=== PATIENT | male | born 1960 | race Caucasian/White ===

== ENCOUNTER 2018-09-26 22:18 | Inpatient (IN) ==
--- NOTE | 2018-09-26 23:26 | PROVIDER DOCUMENTATION ---
This chart was entered by Anabelle Monique Scribe, acting as scribe for Adam Castillo MD. HPI-General Adult - General Chief Complaint: Altered Mental Status Stated Complaint: AMS Time Seen by Provider: 09/26/18 22:36 Source: EMS Allergies/Adverse Reactions: Patient Allergies Allergy/AdvReac Type Severity Reaction Status Date / Time No Known Allergies Allergy Verified 01/02/17 07:33 Home Medications: Home Medication List Medication Instructions Recorded Confirmed Last Taken Type Hydrocodone/APAP 10 mg/325 mg 1 each PO Q6H PRN PRN #20 tablet 05/02/13 01/02/17 02/23/16 06:00 Rx [[place]-10] RAMIpril [Altace] 5 mg PO DAILY 02/22/16 01/02/17 02/23/16 06:00 History Escitalopram [Lexapro] 10 mg PO DAILY 01/02/17 01/02/17 Unknown History Topiramate 50 mg PO BID PRN PRN 01/02/17 01/02/17 Unknown History - History of Present Illness -Gen Adult Nature of Presenting Problems: Pt is 58/m presenting to ED via EMS, w/ altered mental status. Pt arrives to ED very agitated, disoriented and kicking his legs. He has fever of 102. Pt was dx w/ bronchitis earlier today at PCP. He is on steroid as well as antibiotics. Pt has no hx of AMS. Pt does have RX for [place], but has not been taking then according to at bedside. Location of Pain/Injury: reports: generalized Pain Radiation: reports: no radiation Quality of Pain: reports: none Severity: reports: moderate Onset/Duration: reports: just prior to arrival Timing: reports: still present Context/Activities at Onset: reports: none Modifying Factors: improves with: nothing Associated Symptoms: reports: denies symptoms Similar Symptoms Previously?: No Recently seen or treated by another doctor?: No Review of Systems - Adult - REVIEW OF SYSTEMS - ADULT Constitutional: reports: fever Eyes: reports: no symptoms reported Ears, Nose, Mouth & Throat: reports: no symptoms reported Cardiovascular: reports: no symptoms reported Respiratory: reports: shortness of breath Gastrointestinal: denies: nausea, vomiting Genitourinary: reports: no symptoms reported Musculoskeletal: reports: no symptoms reported Integumentary: reports: no symptoms reported Neurological: reports: no symptoms reported. denies: dizziness/vertigo, headache/migraines Psychiatric: reports: other (agitation) Endocrine: reports: no symptoms reported Hematologic/Lymphatic: reports: no symptoms reported Allergic/Immunologic: reports: no symptoms reported All Other Systems: Reviewed and Negative Past History - Adult - PAST MEDICAL HISTORY-ADULT Review of Records: reports: Old Records Reviewed, Nursing Assessment Review, Medications Reviewed, Social history reviewed & non-contributory. Cardiovascular: reports: denies history Respiratory: reports: denies history Gastrointestinal: reports: denies history Musculoskeletal: reports: chronic pain (left hip OA), intervertebral disc disease (neck) - PRIOR SURGERIES/PROCEDURES Surgical/Procedure History: reports: bowel surgery (as ), orthopedic (extremity) (right thumb), back/neck - IMMUNIZATION STATUS Childhood Immunizations: See Nurse Assessment Flu Vaccine: See Nurse Assessment - FAMILY HISTORY Family History: CAD over 55 yo, cancer, PE/DVT, lung disease, CVA/TIA, HTN Physical Exam-General - PHYSICAL EXAM-ADULT Initial Vital Signs Reviewed: Yes - CONSTITUTIONAL General Appearance: alert, moderate distress, other (pt is combatitive, kicking legs and arms. Pt very confused, not oriented.) - EYES Eyes: PERRL/EOMI, pink conjunctivae, other (pupils are equal and reactive) - HEAD, EARS, NOSE, MOUTH & THROAT HENMT: normocephalic/atraumatic, moist mucous membranes, normal ENT inspection, TMs normal, pharynx normal - NECK Neck: non-tender, supple, normal inspection - RESPIRATORY Respiratory: lungs clear - CARDIOVASCULAR Cardiovascular: regular rate, rhythm - GASTROINTESTINAL (ABDOMEN) Abdominal Exam: normal bowel sounds, non tender, soft - LYMPHATIC Lymphatic: no adenopathy - MUSCULOSKELETAL Back Exam: normal inspection, no CVA tenderness, no vertebral tenderness Extremity: normal range of motion, non-tender, normal gait, normal inspection - SKIN Integumentary: normal color, warm/dry - NEUROLOGIC Neurologic: grossly normal - PSYCHIATRIC Psych/Mental Status: normal mood/affect, normal thought content, normal thought process, oriented x 3 Progress - PLAN OF CARE/RESULTS Progress/Plan/Lab Results: Orders Category Date Time Status CT HEAD W/O CONTRAST [CT] Stat Exams 09/26/18 22:33 Ordered Result Diagrams: 09/28/18 07:30 09/28/18 07:30 - REASSESSMENT Reassessment #1 Time Reassessed: 00:30 Status: unchanged Reassessment Comment: PT AGITATED, ATIVAN 2 MG ORDERED. - CT/MRI 1 CT Study: Head Impression: Normal - CONSULTS/PCP/HOSPITALIST Notification #1 *Consult/PCP/Hospitalist*: DR DERAS Time Discussed: 11:50 Consult Disposition: Admit Departure - Departure Date of Disposition Decision: 09/27/18 Time of Disposition Decision: 02:35 DIAGNOSIS: Altered mental status Disposition: ADMITTED INPATIENT 09 Certified Medical Emergency: Emergent Condition: Stable - Critical Care Note This patient required my direct & personal management of CC.: No Attestation - Physician/ KELLY Attestation Patient care was provided by Advanced Practice Provider:: No The physician spent face to face time with patient:: Yes Advanced Practice Provider documentation review:: Supervising physician onsite and consulted in the evaluation and care of this patient. The physician did have a face to face encounter with the patient. This chart was documented by the indicated scribe, (Anabelle Monique, Scribe) and accurately reflects the services I performed and decisions made by me, Adam Castillo MD, as attested by the provider's signature.
[2018-09-26 23:27] LABS: BASO# 0.02 X1000 (0.0-0.2); BASO% 0.2 % (0.0-0.8); HEMOGLOBIN 14.5 g/dL (14.0-18.0); IMM GRAN# 0.03 X1000 (0.0-0.04); IMM GRAN% 0.2 % (0.0-0.5); LYMPH# 1.72 X1000 (1.2-3.4); LYMPH% 13.9 % (20.5-51.1); MCH 28.7 PG (27-31); MCHC 33.7 g/dL (33-37); MONO# 0.99 X1000 (0.11-0.59); MPV 10.5 FL (7.4-10.4); NEUT# 9.61 X1000 (1.4-6.5); NEUT% 77.7 % (42.2-75.2); PLT 200 X1000 (130-400); RBC 5.06 XMIL (4.7-6.1); RDW 12.1 % (11.5-14.5); WBC 12.37 X1000 (4.8-10.8)
[2018-09-26 23:50] LABS: AGAP 14; ALB/GLOB RATIO 1.4; ALBUMIN 4.2 g/dL (3.5-5.0); ALKALINE PHOSPHATASE 76 U/L (32-122); AMYLASE 43 U/L (20-200); BUN 10 mg/dL (8-22); CALCIUM 8.9 mg/dL (8.8-10.2); CHLORIDE 98 mmol/L (98-107); CK PROFILE 181 U/L (24-204); COSMO 269; CREATININE 1.1 mg/dL (0.7-1.2); ESTIMATED GFR > 60; GLUCOSE 129 mg/dL (70-104); GOT 21 U/L (10-34); GPT 29 U/L (10-44); LIPASE 34 U/L (13-60); POTASSIUM 4.3 mmol/L (3.5-5.1); SODIUM 134 mmol/L (136-145); TCO2 22 mmol/L (25-35); TOTAL BILIRUBIN 0.97 mg/dL (0.20-1.00); TOTAL PROTEIN 7.2 g/dL (6.3-8.3)
[2018-09-27] MEDS ORDERED: ATIVAN IV ONE ×2 (00:20→02:25)
[2018-09-27] MEDS ORDERED: ATIVAN IV PRN (01:00)
[2018-09-27] MEDS ORDERED: ROCEPHIN 1 GM in NS 50 ML IV SCH (01:15)
[2018-09-27] MEDS ORDERED: ROCEPHIN 1 GM in NS 50 ML IV ONE (01:25)
[2018-09-27 01:35] LABS: URINE SOURCE CATH
[2018-09-27 01:42] LABS: BILIRUBIN URINE NEGATIVE (NEGATIVE); BLOOD URINE NEGATIVE (NEGATIVE); COLOR YELLOW; GLUCOSE URINE NEGATIVE (NEGATIVE); KETONE URINE NEGATIVE (NEGATIVE); LEUKOCYTES URINE NEGATIVE (NEGATIVE); NITRITE URINE NEGATIVE (NEGATIVE); PH URINE 6.5; PROTEIN URINE TRACE mg/dL (NEGATIVE); SP GRAVITY URINE 1.026; TURBIDITY URINE CLEAR (CLEAR); UR EPITHELIAL CELLS <10 /HPF (<10); URINE BACTERIA NEGATIVE /HPF; URINE RBC <10 /HPF (<10); URINE WBC <10 /HPF (<10); UROBILINOGEN URINE NORMAL (NORMAL)
[2018-09-27 02:03] LABS: UR AMPHETAMINES QUAL NONE DETECTED (NONE DETECT); UR BARBITUATES QUAL NONE DETECTED (NONE DETECT); UR BENZODIAZEPIN QUAL NONE DETECTED (NONE DETECT); UR CANNABINOIDS QUAL NONE DETECTED (NONE DETECT); UR COCAINE QUAL NONE DETECTED (NONE DETECT); UR METHADONE QUAL NONE DETECTED (NONE DETECT); UR OPIATES QUAL PRESUMPTIVE POSITIVE (NONE DETECT); UR OXYCODONE QUAL NONE DETECTED (NONE DETECT); UR PCP QUAL NONE DETECTED (NONE DETECT)
--- NOTE | 2018-09-27 02:51 | HISTORY AND PHYSICAL ---
PRIMARY CARE PHYSICIAN: Dr. Díaz. CHIEF COMPLAINT: Altered mental status. HISTORY OF PRESENTING ILLNESS: A 58-year-old male with a history of hypertension, depression, chronic neck pain, who had presented to the emergency department due to patient being altered and agitated. As per family, he was having some fevers and they went to an urgent care and he was given steroids and some antibiotics. The patient family states that he was doing well but apparently later in the day he developed no worsening confusion and agitation and subsequently was brought into the emergency department. In the ED, he was evaluated. He was mildly combative. He was given Ativan for some sedation and he will require admission for further management. At the time of my examination, the patient was resting more comfortably and most of the history is obtained from family members. PAST MEDICAL HISTORY: Includes hypertension, depression, chronic neck pain. PAST SURGICAL HISTORY: Cervical fusion, surgery on right great toe. ALLERGIES: No known drug allergies. CURRENT MEDICATIONS: Include Lexapro 10 mg p.o. daily, Altace 5 mg p.o. daily. Topamax 50 mg p.o. daily, [place] 10 daily. SOCIAL HISTORY: No history of smoking, alcohol or illicit drug use. FAMILY HISTORY: Positive for coronary artery disease in father. REVIEW OF SYSTEMS: Unable to obtain. PHYSICAL EXAMINATION: GENERAL: The patient is resting more comfortably now, but seems to arouse and get agitated. VITAL SIGNS: Pulse 76, blood pressure 191/87. He is saturating 98%. HEENT: Atraumatic, normocephalic. NECK: No masses. CHEST: Clear to auscultation. CARDIOVASCULAR: Regular rate and rhythm. ABDOMEN: Soft, positive bowel sounds. EXTREMITIES: No edema. NEUROLOGIC: Patient is arousable but agitated. GENITOURINARY: No bladder distention. SKIN: Warm. LABORATORIES AND STUDIES: WBCs 12.37, hemoglobin 14.5, hematocrit 43.0, platelets 200,000. Sodium 134, potassium 4.3, chloride 98, CO2 is 22, BUN is 10 creatinine is 1.1, glucose is 129. ASSESSMENT: A 58-year-old male with a history of hypertension, depression, chronic neck pain, who was brought to the emergency department due to worsening confusion and agitation. Apparently, he has been running fevers and he went to urgent care and he was given steroids and IV antibiotic injection as per family. However, later in the day he became more agitated and confused and they brought him to the emergency department. In the ED, he was evaluated and due to his presenting symptoms he will require admission for further management. 1. Altered mental status. 2. Fever/leukocytosis. 3. Hypertension. 4. Depression. PLAN: 1. We will admit patient to medical floor with telemetry. 2. We will check neuro checks. 3. We will check blood cultures. Start patient on empiric antibiotics. 4. We will monitor blood pressure closely. 5. We will restart home medications. 6. We will continue to follow, and reassess and make further recommendation based on patient's clinical course. cc: MD Fahad Levi MD
--- NOTE | 2018-09-27 07:16 | Diag Imaging Result Doc PS360 ---
EXAM: CHEST-1 VIEW 09/26/2018 HISTORY: AMS TECHNIQUE: AP portable upright at 2315 COMMENT: The inspiration is suboptimal. Considering degree of inspiration there has been no significant change since 01/02/2017. IMPRESSION: Stable chest. Electronically signed by Anthony Vergara 09/27/2018 7:13 AM
--- NOTE | 2018-09-27 07:34 | Diag Imaging Result Doc PS360 ---
EXAM: CT HEAD W/O CONTRAST 09/26/2018 HISTORY: AMS TECHNIQUE: This exam was performed using automated exposure control, adjustment of mA or kV according to patient size, and/or use of iterative reconstruction technique. COMMENT: There is no evidence of mass effect, bleed, abnormal extra-axial fluid collection, or hydrocephalus. Compared to 12/11/2016 there has been no significant change. The calvarium is intact. There is a mucous retention cyst in the left maxillary sinus, and there is some mucosal thickening in the right frontal sinus, otherwise the paranasal sinuses appear to be clear. IMPRESSION: No evidence of acute intracranial disease. Electronically signed by Anthony Vergara 09/27/2018 7:31 AM
--- NOTE | 2018-09-27 08:42 | EKG Report ---
Test Performed on : 09/27/2018 01:42:57 AM Test Reason : ED. No order in [place] Blood Pressure : / mmHG Vent. Rate : 091 BPM Atrial Rate : 091 BPM P-R Int : 166 ms QRS Dur : 094 ms QT Int : 366 ms P-R-T Axes : 031 020 027 degrees QTc Int : 450 ms Sinus rhythm. with premature supraventricular complexes. Nonspecific T wave abnormality Abnormal ECG When compared with ECG of 02-JAN-2017 07:28, premature supraventricular complexes. are now present Unconfirmed Result
--- NOTE | 2018-09-27 09:32 | PROGRESS NOTE ---
DATE: 09/27/2018 SUBJECTIVE: The patient is a 58-year-old white man who went to Urgent Care with some chest discomfort and fever. He was given IM Rocephin and Decadron. He developed acute mental change following that, and presented to the emergency room. CT of his head was unremarkable. He was able to speak fairly normal normally when agitated, but otherwise was lethargic. He was given some Ativan. He is somnolent and lethargic this morning. His feels that the medicine he received at urgent care may have contributed to his mental change. He has had no recent similar episodes. He was admitted by the hospitalist late last evening. Hemoglobin 14.5, hematocrit 43, white blood count 77764 with 78% neutrophils. CPK was normal. Troponin was less than 0.01. BMP and liver functions were normal. Plasma lactate was 1.1. The patient is somnolent and snoring this morning. He cannot be easily aroused. He is restrained because of attempts to pull out IV and Montes. PLAN: Change IV antibiotic to Zithromax. Ativan is discontinued. Montes will be removed if the patient becomes agitated, and desires it removed. Hopefully, his mental status will be improved by this afternoon. cc: Fahad Díaz MD
[2018-09-27] MEDS: TYLENOL PO PRN ×2 (10:40→23:16)
[2018-09-27] MEDS: ZITHROMAX 500 MG/NS 500 MG/250 ML IVPB IV SCH (11:08)
[2018-09-27] MEDS ORDERED: DILAUDID IV PRN (13:57)
[2018-09-27] MEDS ORDERED: STERILE WATER INJ. INJ PRN (17:33)
[2018-09-27] MEDS ORDERED: NS 1,000 ML IV SCH (17:45)
--- NOTE | 2018-09-27 18:01 | PROGRESS NOTE ---
DATE: 09/27/2018 OBJECTIVE: Vital Signs: Temperature 99.1 degrees axillary, heart rate 99, respirations 18, O2 saturation on room air 94%. General: Patient is extremely agitated, requiring restraints. Dilaudid does not seem to calm him down. He is not responsive to verbal commands or verbal response to questioning. PLAN: 1. Discontinue Dilaudid and attempt to give him his usual [place] 10. 2. Geodon 20 mg IM q.6 hours p.r.n. is added. cc: Fahad Díaz MD
[2018-09-27] MEDS: GEODON IM PRN (19:08)
[2018-09-27] MEDS: NS 1,000 ML IV SCH (19:09)
[2018-09-28] MEDS: NS 1,000 ML IV SCH ×3 (04:00→18:35)
[2018-09-28 08:02] LABS: BASO# 0.02 X1000 (0.0-0.2); BASO% 0.1 % (0.0-0.8); HEMATOCRIT 41.5 % (42.0-52.0); HEMOGLOBIN 14.2 g/dL (14.0-18.0); IMM GRAN# 0.05 X1000 (0.0-0.04); IMM GRAN% 0.4 % (0.0-0.5); LYMPH# 1.73 X1000 (1.2-3.4); MCH 29.5 PG (27-31); MCHC 34.2 g/dL (33-37); MCV 86.1 FL (81-99); MONO# 1.38 X1000 (0.11-0.59); MONO% 10.3 % (1.7-9.3); MPV 10.1 FL (7.4-10.4); NEUT# 10.16 X1000 (1.4-6.5); NEUT% 76.2 % (42.2-75.2); PLT 231 X1000 (130-400); RBC 4.82 XMIL (4.7-6.1); RDW 12.3 % (11.5-14.5); WBC 13.34 X1000 (4.8-10.8)
[2018-09-28 08:25] LABS: LYMPHS 22 % (21-51); MONO 4 % (1-9); SEGS 72 % (42-75)
[2018-09-28 08:31] LABS: AGAP 13; BUN 18 mg/dL (8-22); CALCIUM 8.6 mg/dL (8.8-10.2); CHLORIDE 103 mmol/L (98-107); COSMO 279; CREATININE 1.2 mg/dL (0.7-1.2); ESTIMATED GFR > 60; GLUCOSE 118 mg/dL (70-104); SODIUM 138 mmol/L (136-145); TCO2 22 mmol/L (25-35)
--- NOTE | 2018-09-28 08:58 | PROGRESS NOTE ---
DATE: 09/28/2018 VITAL SIGNS: Temperature 99.3 degrees, heart rate 72, respirations 22, blood pressure 137/68, O2 saturation on 2 liters nasal oxygen 100%. LABORATORY: Hemoglobin 14.2, hematocrit 41.5, white blood count 13,300 with 76% neutrophils. SUBJECTIVE: Patient continues to be confused and verbally unresponsive. He is thrashing around in the bed, trying to get up at times. He continues to need restraints. Geodon helps some, but basically the patient is unchanged since yesterday. The patient is unable to take his [place] p.o. and spits out ice that is put in his mouth. BMP is normal this morning. PLAN: Recheck urinalysis. Also, Dr. Moe is consulted for evaluation. cc: Fahad Díaz MD
[2018-09-28] MEDS: ZITHROMAX 500 MG/NS 500 MG/250 ML IVPB IV SCH (09:07)
[2018-09-28] MEDS: NORCO-10 PO PRN ×2 (09:07→19:51)
[2018-09-28] MEDS: DEMEROL IV PRN ×3 (09:17→16:20)
[2018-09-28] MEDS: GEODON IM PRN (10:46)
[2018-09-28] MEDS: TYLENOL PO PRN (17:41)
[2018-09-28 19:16] LABS: URINE SOURCE VOIDED
[2018-09-28 19:20] LABS: BILIRUBIN URINE NEGATIVE (NEGATIVE); BLOOD URINE MODERATE (NEGATIVE); COLOR YELLOW; GLUCOSE URINE NEGATIVE (NEGATIVE); KETONE URINE NEGATIVE (NEGATIVE); LEUKOCYTES URINE NEGATIVE (NEGATIVE); NITRITE URINE NEGATIVE (NEGATIVE); PROTEIN URINE TRACE mg/dL (NEGATIVE); SP GRAVITY URINE 1.023; TURBIDITY URINE CLEAR (CLEAR); UROBILINOGEN URINE NORMAL (NORMAL)
[2018-09-28 19:21] LABS: UR EPITHELIAL CELLS <10 /HPF (<10); URINE BACTERIA NEGATIVE /HPF; URINE WBC <10 /HPF (<10)
[2018-09-29] MEDS: DEMEROL IV PRN ×2 (00:24→04:36)
[2018-09-29] MEDS: TYLENOL PO PRN (00:31)
[2018-09-29] MEDS: NS 1,000 ML IV SCH ×3 (04:54→17:06)
[2018-09-29] MEDS: ZITHROMAX 500 MG/NS 500 MG/250 ML IVPB IV SCH (08:49)
[2018-09-29] MEDS: NORCO-10 PO PRN ×4 (08:50→22:01)
--- NOTE | 2018-09-29 10:04 | PROGRESS NOTE ---
DATE: 09/29/2018 Vital signs stable with temperature 98.2 degrees, heart rate 69, respirations 18, blood pressure 140/69, O2 saturation on room air 98%. The patient had a low-grade fever this morning of 99.5. The patient continues to be somewhat confused, but improving. His toxicology screen on admission revealed only opiates. He takes [place] 10/325 q.i.d. for chronic back pain. His neck is supple. There is a possibility of viral encephalopathy. Dr. Moe is consulted. Blood cultures have revealed no growth. PLAN: Continue Zithromax IV. Lab will be rechecked tomorrow morning. cc: Fahad Díaz MD
[2018-09-30] MEDS: NS 1,000 ML IV SCH (07:37)
[2018-09-30] MEDS ORDERED: SALINE LOCK IV FLUID XX ONE (07:58)
--- NOTE | 2018-09-30 08:14 | PROGRESS NOTE ---
DATE: 09/30/2018 VITAL SIGNS: Stable with temperature 97.7 degrees, heart rate 62, respirations 16, blood pressure 137/74, O2 saturation on room air 94%. SUBJECTIVE: The patient is continuing to improve, but has some short-term memory issues. Dr. Moe is evaluating him this morning. Chest is clear. PLAN: Discontinue IV and IV medications. Consider discharge home this afternoon. cc: Fahad Díaz MD
[2018-09-30 09:06] LABS: BASO# 0.02 X1000 (0.0-0.2); BASO% 0.2 % (0.0-0.8); EOS# 0.78 X1000 (0.0-0.7); EOS% 8.8 % (0.0-10.0); HEMATOCRIT 40.7 % (42.0-52.0); HEMOGLOBIN 13.8 g/dL (14.0-18.0); IMM GRAN# 0.02 X1000 (0.0-0.04); IMM GRAN% 0.2 % (0.0-0.5); LYMPH# 2.24 X1000 (1.2-3.4); LYMPH% 25.3 % (20.5-51.1); MCHC 33.9 g/dL (33-37); MCV 85.5 FL (81-99); MONO# 0.78 X1000 (0.11-0.59); MONO% 8.8 % (1.7-9.3); MPV 9.8 FL (7.4-10.4); NEUT# 5.02 X1000 (1.4-6.5); NEUT% 56.7 % (42.2-75.2); PLT 214 X1000 (130-400); RBC 4.76 XMIL (4.7-6.1); RDW 12.3 % (11.5-14.5); WBC 8.86 X1000 (4.8-10.8)
--- NOTE | 2018-09-30 09:16 | CONSULTATION ---
DATE OF CONSULTATION: 09/30/2018 SUBJECTIVE: Mr. Laguna is 58 years old and he had recent somnolence. History from the patient is that he remembers having some coughing and going to local urgent care clinic. He does not have clear memory of anything after that until about 36 hours ago, well after he was admitted to the hospital. He was better yesterday and seems just about back to baseline today. History from attentive and review of the hospital records is that he had some coughing over a few days, but was completely alert mentally. He presented to urgent care clinic and received IM dexamethasone and ceftriaxone. He was alert at discharge. He went home and slept. A few hours later, could not get him to stay awake. He would answer some questions but then be back to sleep quickly. Not clear that there was ever definite disorientation. He reports he does not recall transport to or admission to the hospital. He remembers seeing Dr. Díaz one day over the weekend in the hospital. He has not had any further memory gaps. This morning, he seems to be about back to baseline. There is not history of prior similar episode. There is no history of recent head injury. He has never had diagnosed stroke or seizure. 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 He does not abuse ethanol. He had not made any other recent medication changes. LABORATORY DATA: Workup here showed WBC 13,000, temperature 102.7 degrees a few days ago. He has been afebrile since then. Noncontrast CT of the head was unremarkable. PAST MEDICAL HISTORY: Past history is remarkable for hypertension, depression, neck and back pain. MEDICATIONS: Home medicines include 1. topiramate. 2. escitalopram. 3. ramipril. 4. hydrocodone/acetaminophen p.r.n. for pain. PHYSICAL EXAMINATION: On exam now, Mr. Laguna is awake, alert, attentive. He seems appropriate. Some of his responses are a little bit slow, but all are appropriate. Speech is not dysarthric. Language function is intact on bedside testing. Remote memory is good. He scored 24/30 on bedside cognitive testing. The only real mistake was that he recalled 2 of 3 items at 10 minutes after registering 3 of 3 items. He picked the 3rd item correctly with a single hint. He made no effort to spell "world" backward. He answered every other question correctly. Head and neck are unremarkable. There is no meningismus. Visual nolan are full tested by confrontational finger counting. Extraocular movements are full. Facial motility is symmetric. The right nasolabial fold is slightly less prominent than the left but motility is good bilaterally. Gag is intact. Tongue is midline. He can hear. Shoulder shrug is equal. Strength is normal in the arms and legs. He did well on [id number] testing bilaterally. I did not test his gait. IMPRESSION: Period of somnolence, likely medication effect. There might have been confusion or disorientation, but all I can get from history definitively is somnolence. He has been gradually improved over these few days and seems back to baseline now. His performance on cognitive testing is unremarkable, consistent with poor attention, and there is not evidence of cognitive deficit. Negative CT is reassuring. I do not think we need further brain imaging now. I do not think EEG would pattern changer now. I agree with Dr. Díaz's plans for discharge soon. If he does not continue at baseline mentally or if he has further episodes, I will be glad to see him again. I encouraged him to stay well hydrated and well rested, to follow sensible diet, to take medicines as directed and to keep keep follow up with Dr. Díaz. Thanks for asking Neurology to see Mr. Laguna. cc: MD Fahad Reyez III, MD MTDD
[2018-09-30 16:03] VITALS: BP 140/76
--- NOTE | 2018-09-30 21:29 | DISCHARGE SUMMARY ---
ADMISSION DATE: 09/26/2018 DISCHARGE DATE: 09/30/2018 FINAL DIAGNOSES: 1. Encephalopathy related to medications, Decadron and Rocephin intravenous. 2. Chronic back pain. 3. Delirium. 4. Hypertension. This is the first recent [facility] admission for this 58-year-old white man who presented to the emergency room with confusion and low-grade fever. He had been seen earlier at Urgent Care and given IV Decadron and Rocephin. CT scan of his head was unremarkable with no lesions or abnormality. He was admitted for further evaluation. INITIAL LABORATORY: Hemoglobin 14.5, hematocrit 43.0, white blood count 12,400 with 78% neutrophils. Sodium 134, potassium 4.3, BUN 10, creatinine 1.1, glucose 129. Liver functions normal. CPK 181, troponin less than 0.01. Protein 7.2, albumin 4.2, plasma lactate 1.1. HOSPITAL COURSE: He continued to be confused for several days requiring IV Ativan, IM Geodon, and IV narcotics initially with Dilaudid then Demerol. He required restraints for a couple of days. He pulled out his Montes and had some dysuria and mild hematuria following that, but no evidence of infection. He was changed from Rocephin which was ordered in the emergency room to IV Zithromax. He slowly improved and has been afebrile for about 24 hours. His white blood count today was better at 8800. Dr. Moe was asked to evaluate him related to his mental change. He had some short-term memory issues but mini-mental status score was 24/30. He had marked improvement over the last couple of days and is back to baseline this afternoon. Dr. Moe felt that no additional tests were needed and that he would most likely continue to improve. Most likely etiology for his delirium was medication. He is discharged home on his usual home medicine to return for evaluation in 1 week for followup. For evaluation in 1 week for followup. cc: Fahad Díaz MD
== END 2018-09-30 18:13 | disposition home or self-care (01) | DRG 91 ==
LOC: SUPCPDRO → ED 22:18 → 3N 09-27 01:13 → SUATTDRO 09-27 01:13
PROVIDERS: ADMIT Family Medicine; ATTEND Family Medicine
CPT/HCPCS: 70450; 71010; 71045; 80048; 80053; 80101; 80301; 80307; 80320; 80324; 80345; 80346; 80353; 80358; 80361; 80365; 81001; 82055; 82150; 82550; 82948; 83605; 83690; 83992; 84484; 85025; 87040; 93005; A9270; G0431; G0434; G0479; G0480; G6040; J0456; J0696; J1170; J2060; J2175; J3486; J7030; XXXXX